=== PATIENT | female | born 1965 | race Caucasian/White ===

== ENCOUNTER 2020-03-05 11:52 | Emergency (ER) | payer MEDICARE, MEDICAID, SELFPAY ==
[2020-03-05] VITALS (7 sets, daily range): BP systolic 139–187; BP diastolic 69–91; PULSE 59–82; RESP 12–21; TEMP 36.7; O2SAT 98–100
--- NOTE | 2020-03-05 11:58 | ED.AMS ---
HPI - Altered Mental Status General Chief Complaint: Altered Mental Status Stated Complaint: Thinks Stroke Time Seen by Provider: 03/05/20 11:54 Source: patient and family Mode of arrival: Ambulatory Limitations: no limitations History of Present Illness HPI narrative: Daily smoker states she was in which she describes as her normal state of health until she went to sleep at 5:00 a.m. this morning. She states that she was hanging out with some friends and would not normally stay up that late. She presented here at about noon with friends stating that she was difficult to arouse. The patient herself denies any specific symptoms, she just states that she feels sleepy. She denies any trauma. She denies any headache or blurred vision. She denies any trouble swallowing or breathing. She denies chest pain or shortness of breath. She denies any numbness, tingling or weakness of her extremities. She denies any history of the same. She denies any use of alcohol or street drugs. MD complaint: altered mental status Onset (ago): hour(s) Severity: moderate Consistency of symptoms: unknown Associated symptoms: denies other symptoms Related Data Home Medications Medication Instructions Recorded Confirmed RANITIDINE HCL (Ranitidine HCl) 150 mg PO BID #0 02/20/11 Previous Rx's Medication Instructions Recorded KETOCONAZOLE 2% (#NIZORAL OFF 2 % TP BID #1 tube 02/20/11 MARKET) TRIAMCINOLONE ACETONIDE (#KENALOG) 0.1 % TP BID #1 tube 02/20/11 triamcinolone acetonide 0.5 gm TP BID #1 t 04/04/11 zolpidem 10 mg PO HS PRN #30 05/30/11 sulfamethoxazole-trimethoprim 1 tab PO BID 10 Days #20 tab 03/05/20 [Bactrim DS] Allergies Allergy/AdvReac Type Severity Reaction Status Date / Time No Known Drug Allergies Allergy Verified 03/05/20 15:12 Review of Systems Constitutional Constitutional: Denies chills, Denies fatigue, Denies fever(s), Denies frequent falls, Denies lethargy and Reports weakness Eyes Eyes: Denies change in vision, Denies eye discharge, Denies irritation and Denies loss of vision ENT Ears, Nose, Mouth, and Throat: Denies change in voice, Denies dizziness, Denies neck pain, Denies sore throat and Denies throat swelling Cardiovascular Cardiovascular: Denies chest pain, Denies irregular heart rhythm, Denies lightheadedness, Denies palpitations, Denies dyspnea, Denies dyspnea on exertion and Denies orthopnea Respiratory Respiratory: Denies cough, Denies dyspnea, Denies dyspnea on exertion and Denies wheezing Gastrointestinal Gastrointestinal: Denies abdominal pain, Denies change in bowel habits, Denies diarrhea, Denies nausea and Denies vomiting Musculoskeletal Musculoskeletal: Denies neck pain and Denies numbness Integumentary/Breasts Skin/Breast: Denies pruritus, Denies erythema, Denies rash and Denies wounds Neurologic Neurologic: Denies behavioral changes, Reports confusion, Denies dizziness, Denies frequent falls, Denies loss of vision, Denies numbness and Reports weakness Comments: difficult to arouse per friends Psychiatric Psychiatric: Denies anxiety, Denies behavioral changes, Reports confusion, Denies depression, Denies homicidal ideation and Denies suicidal ideation Endocrine Endocrine: Denies fatigue, Denies flushing and Denies palpitations Hematologic/Lymphatic Hematologic/Lymphatic: Denies easy bruising Allergic/Immunologic Allergic/Immunologic: Denies urticaria, Denies throat swelling and Denies wheezing Patient History Social History Smoking Status: Current every day smoker Smoking Status: Current every day smoker alcohol intake frequency: 0-2 drinks per day Substance Use Type: does not use Exam Narrative Exam Narrative: GENERAL: [54] year old patient appears stated age. Ambulatory in the department, no obvious lateralizing symptoms. She makes poor eye contact and seems a bit sleepy but wakes up and answers questions accurate HEAD: Atraumatic. Normocephalic. EYES: Pupils equal round and reactive. Extraocular motions intact. No scleral icterus. No injection or drainage. ENT: Nose without bleeding, purulent drainage. Throat without erythema, tonsillar hypertrophy or exudate. Airway patent. NECK: Trachea midline. Non tender CARDIOVASCULAR: Regular rate and rhythm without murmurs, gallops, or rubs. RESPIRATORY: Clear to auscultation. Breath sounds equal bilaterally. No wheezes, rales, or rhonchi. GASTROINTESTINAL: Abdomen soft, non-tender, nondistended. EXTREMITIES: No edema or joint tenderness. BACK: Nontender without deformity or crepitance. No flank tenderness. NEURO: AOx3. SKIN: No rash or erythema of visible areas Initial Vital Signs Initial Vital Signs: Vital Signs Temperature 98.1 F 03/05/20 11:55 Pulse Rate 78 03/05/20 11:55 Respiratory Rate 20 03/05/20 11:55 Blood Pressure 187/70 H 03/05/20 11:55 Pulse Oximetry 99 03/05/20 11:55 Scores NIH Stroke Scale Level of Conciousness: Alert, keenly responsive Ask month/age: Answers both questions correctly. Open/close eyes, close hand: Performs both tasks correctly Best gaze horizontal: Normal Visual miramontes: No visual loss Facial palsy: Normal symetrical movement Left arm drift: No drift for full 10 sec Right arm drift: No drift for full 10 sec Left leg drift: No drift for full 5 sec Right leg drift: No drift for full 5 sec Limb ataxia: Absent Sensory on face/arms/legs: Normal, no sensory loss Best language: No aphasia, normal Dysarthria: Normal Extinction or inattention: No abnormality Total NIH Stroke scale score: 0 Course Course Course Narrative: Patient feeling much better after fluids and rest. She has no focal neurologic findings. She is alert and oriented. She is ambulating through the department. Orders Ordered: Discontinued Medications Sodium Chloride (Normal Saline 0.9%) 1,000 mls @ 125 mls/hr IV CONT PRANAY Last Infusion: 03/05/20 15:00 Dose: 0 mls/hr Documented by: Admin: 03/05/20 12:35 Dose: 125 mls/hr Documented by: RADHA Vital Signs Vital signs: Vital Signs - 8 hr 03/05/20 11:55 03/05/20 12:30 03/05/20 12:59 Temperature 98.1 F Pulse Rate 78 82 81 Respiratory Rate 20 17 13 Blood Pressure 187/70 H 142/90 H 152/90 H Pulse Oximetry 99 98 100 03/05/20 13:30 03/05/20 13:53 03/05/20 14:00 Temperature Pulse Rate 74 74 79 Respiratory Rate 14 12 21 Blood Pressure 139/69 171/91 H 166/74 H Pulse Oximetry 99 99 100 03/05/20 14:30 Temperature Pulse Rate 59 L Respiratory Rate Blood Pressure Pulse Oximetry 99 MDM - Altered Mental Status Lab Data Result diagrams: 03/05/20 12:25 03/05/20 12:25 Labs: Lab Results 03/05/20 03/05/20 03/05/20 Range/Units 12:25 12:25 12:25 WBC 7.5 (4.5-11.0) X10^3/uL RBC 4.52 (4.0-5.2) X10^6/uL Hgb 13.9 (12.0-16.0) g/dL Hct 40.3 (36-46) % MCV 89.1 (80-100) fL MCH 30.7 (26-34) PG MCHC 34.5 (30-36) % RDW 12.5 (11.6-14.8) % Plt Count 303 (150-400) X10^3/uL Neut % (Auto) 59.3 (50-75) % Lymph % (Auto) 30.9 (25-40) % [place] % (Auto) 8.5 (3-14) % Eos % (Auto) 0.6 L (2-4) % Baso % (Auto) 0.7 (0-2) % Neut # (Auto) 4400 (6692-2778) /uL Lymph # (Auto) 2300 (7643-8680) /uL [place] # (Auto) 600 (0-900) /uL Eos # (Auto) 0 (0-450) /uL Baso # (Auto) 0 (0-100) /uL Sodium (137-145) mmol/L Potassium (3.4-5.1) mmol/L Chloride (98-107) mmol/L Carbon Dioxide (22-32) mmol/L BUN (7-17) mg/dL Creatinine (0.52-1.04) mg/dL Estimated GFR (>60) mL/min BUN/Creatinine Ratio (6-22) Glucose (70-100) mg/dL Calcium (8.4-10.2) mg/dL Magnesium (1.6-2.3) mg/dL Total Bilirubin (0.2-1.3) mg/dL AST (14-36) IU/L ALT (<35) IU/L Alkaline Phosphatase (38-126) U/L Ammonia 23 (9-30) umol/L Total Creatine Kinase (30-135) U/L CK-MB (CK-2) CK-MB (CK-2) Rel Index Troponin I (0.01-0.034) ng/mL NT-Pro-B Natriuret Pep (<125) pg/mL Total Protein (6.3-8.2) g/dL Albumin (3.5-5.0) g/dL Globulin (1.7-4.1) g/dL Albumin/Globulin Ratio (1.0-2.8) Urine RBC (0-5/HPF) Urine WBC (0-5/HPF) Urine Bacteria (None) Ur Culture Indicated? U Opiates 300ng/mL cut (Negative) Ur Oxycodone Screen (Negative) Urine Methadone Screen (Negative) Ur Barbiturates Screen (Negative) U Tricyclic Antidepress (Negative) Ur Phencyclidine Scrn (Negative) Ur Amphetamines Screen (Negative) U Methamphetamines Scrn (Negative) Ur MDMA Scrn (Ecstasy) (Negative) U Benzodiazepines Scrn (Negative) Urine Cocaine Screen (Negative) U Marijuana (THC) Screen (Negative) Ethyl Alcohol < 10 ( - 10) mg/dL 03/05/20 03/05/20 03/05/20 Range/Units 12:25 14:11 14:27 WBC (4.5-11.0) X10^3/uL RBC (4.0-5.2) X10^6/uL Hgb (12.0-16.0) g/dL Hct (36-46) % MCV (80-100) fL MCH (26-34) PG MCHC (30-36) % RDW (11.6-14.8) % Plt Count (150-400) X10^3/uL Neut % (Auto) (50-75) % Lymph % (Auto) (25-40) % [place] % (Auto) (3-14) % Eos % (Auto) (2-4) % Baso % (Auto) (0-2) % Neut # (Auto) (6227-5690) /uL Lymph # (Auto) (0409-4196) /uL [place] # (Auto) (0-900) /uL Eos # (Auto) (0-450) /uL Baso # (Auto) (0-100) /uL Sodium 139 (137-145) mmol/L Potassium 3.7 (3.4-5.1) mmol/L Chloride 104 (98-107) mmol/L Carbon Dioxide 31 (22-32) mmol/L BUN 13 (7-17) mg/dL Creatinine 0.61 (0.52-1.04) mg/dL Estimated GFR > 60.0 (>60) mL/min BUN/Creatinine Ratio 21.3 (6-22) Glucose 114 H (70-100) mg/dL Calcium 9.8 (8.4-10.2) mg/dL Magnesium 2.0 (1.6-2.3) mg/dL Total Bilirubin 0.5 (0.2-1.3) mg/dL AST 30 (14-36) IU/L ALT 24 (<35) IU/L Alkaline Phosphatase 111 (38-126) U/L Ammonia (9-30) umol/L Total Creatine Kinase 87 (30-135) U/L CK-MB (CK-2) TNP CK-MB (CK-2) Rel Index TNP Troponin I < 0.012 (0.01-0.034) ng/mL NT-Pro-B Natriuret Pep 121 (<125) pg/mL Total Protein 7.3 (6.3-8.2) g/dL Albumin 4.4 (3.5-5.0) g/dL Globulin 2.9 (1.7-4.1) g/dL Albumin/Globulin Ratio 1.5 (1.0-2.8) Urine RBC 0-1/hpf (0-5/HPF) Urine WBC 10-30/hpf H (0-5/HPF) Urine Bacteria Many (>30) H (None) Ur Culture Indicated? Specimen cultured U Opiates 300ng/mL cut Negative (Negative) Ur Oxycodone Screen Negative (Negative) Urine Methadone Screen Negative (Negative) Ur Barbiturates Screen Negative (Negative) U Tricyclic Antidepress Negative (Negative) Ur Phencyclidine Scrn Negative (Negative) Ur Amphetamines Screen Positive H (Negative) U Methamphetamines Scrn Positive H (Negative) Ur MDMA Scrn (Ecstasy) Negative (Negative) U Benzodiazepines Scrn Negative (Negative) Urine Cocaine Screen Negative (Negative) U Marijuana (THC) Screen Negative (Negative) Ethyl Alcohol ( - 10) mg/dL Point of Care Testing Test Results Negative Urine Dip Bedside Urine Glucose Negative Bedside Urine Bilirubin - Negative Bedside Urine Ketone - Negative Urine Specific [place] 1.015 Bedside Urine Occult Blood - Negative Bedside Urine pH 6.5 Bedside Urine Protein - Negative Bedside Urine Urobilinogen - Negative Bedside Urine Nitrite - Negative Bedside Urine Leukocytes + [address] scan - head: Radiologist's Impression: [address] [id number] Scan ReportSigned Patient: Ivania Vergara JMR#: [id number]: 1965Acct:[id number]/Sex: 54 / FDate of Service: 03/05/20Loc: EDAccession Number: [id number] Procedure: CT head/brain wo con Ordering Provider: Noé Coelho D.O. PROCEDURE: CT HEAD/BRAIN WO CON INDICATIONS: altered TECHNIQUE: Noncontrast 4.5 mm thick angled axial sections acquired from the foramen magnum to the vertex, with coronal and sagittal reformats. For radiation dose reduction, the following was used: automated exposure control, adjustment of mA and/or kV according to patient size. COMPARISON: [facility], RG, CT HEAD W/O CONTRAST, 11/13/2005, 9:39. [facility], MR, BRAIN WITH AND WITHOUT CONTRAS, 06/04/2007, 7:37. FINDINGS: Image quality: This examination is limited by involuntary motion artifact. CSF spaces: Basal cisterns are patent. No extra-axial fluid collections. Ventricles are normal in size and shape. Brain: No midline shift. No intracranial masses or hemorrhage. Matos-white matter interface is normal. There is a remote right posterior inferior cerebellar infarction seen. Skull and face: Likely remote trauma can be seen involving the right occipital bone. Calvarium and visualized facial bones are otherwise intact, without suspicious lesions. Sinuses: Visualized sinuses and mastoids are clear. IMPRESSION: Limited study demonstrating no definite, acute intracranial abnormality. 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 Likely remote trauma of the right occipital bone. Dictated by: Jaciel Rouse M.D. on 03/05/2020 at 12:12 Approved by: Jaciel Rouse M.D. on 03/05/2020 at 12:[address] [id number] Scan ReportSigned Patient: Ivania Vergara JMR#: [id number]: 1965Acct:[id number]/Sex: 54 / FDate of Service: 03/05/20Loc: EDAccession Number: [id number] Procedure: CT angio head and neck Ordering Provider: Noé Coelho D.O. PROCEDURE: CT ANGIO HEAD AND NECK INDICATIONS: altered, question stroke on CT head TECHNIQUE: Pre-contrast 4.5 mm thick sections acquired from the foramen magnum to the vertex. After the administration of intravenous contrast, 1 mm thick sections acquired from the aortic arch through the [place] of [place]. Post-contrast 4.5 mm thick sections then re-acquired from the foramen magnum to the vertex. 3-dimensional zjswlrb-mcnkbkxgj-bdoinwmbmv (MIP) and/or volume rendering reformats were acquired of the central intracranial vasculature and neck separately. COMPARISON: [facility], RG, CT HEAD W/O CONTRAST, 11/13/2005, 9:39. [facility], MR, BRAIN WITH AND WITHOUT CONTRAS, 06/04/2007, 7:37. [facility], CT, CT HEAD/BRAIN WO CON, 03/05/2020, 12:43. FINDINGS: Image quality: Excellent. BRAIN: CSF spaces: Ventricles are normal in size and shape. Probably arachnoid cyst versus old cerebellar infarct the right posterior fossa, unchanged. Basal cisterns are patent. No extra-axial fluid collections. Brain: No midline shift. No intracranial bleeds or masses. Matos-white matter interface appears intact. Skull and face: Calvarium and facial bones appear intact, without suspicious lesions. Orbits appear normal. Sinuses: There is mucous retention material in the right maxillary sinus. The mastoids are clear. HEAD CT ANGIOGRAPHY: Anterior circulation: Intracranial internal carotid arteries are normal in size and flow. The flow within the paired anterior cerebral arteries is normal and symmetric. The flow within the middle cerebral arteries is normal and symmetric. The anterior communicating artery is seen. No aneurysms are seen. Posterior circulation: Visualized portions of the vertebral arteries demonstrate normal caliber, and join to form a normal appearing basilar artery. Flow within the posterior cerebral arteries is normal and symmetric. No aneurysms are seen. NECK CT ANGIOGRAPHY: Carotid system: The great vessels demonstrate a conventional anatomy as they arise from the aortic arch. The origins of the common carotid arteries appear patent. The common carotid arteries demonstrate normal caliber and courses. The bifurcation regions are both widely patent. There is short segment critical stenosis or occlusion of the right internal carotid artery at the skull base. The cavernous segment of the right internal carotid artery reconstitutes from collateral although enhances less than the contralateral left common internal carotid artery. The left internal carotid artery demonstrates normal caliber and course. Posterior circulation: The origins of the vertebral arteries both appear widely patent. The more superior extracranial portions of both vertebral arteries also demonstrate normal courses and calibers. They join to form a normal appearing basilar artery. Soft tissues: Visualized neck soft tissues demonstrate no suspicious abnormalities. There is a 1.2 cm right thyroid cyst. Bones: No suspicious bony lesions. Visualized cervical spine appears normally aligned. IMPRESSION: 1. No acute intracranial abnormalities. 2. Right maxillary sinusitis. 3. No high-grade stenosis or occlusion in anterior circulations. 3. No high-grade stenosis or occlusion in posterior circulations. 4. 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 5. No high-grade stenosis or occlusion in cervical vertebral arteries bilaterally. The result was discussed with Dr. Coelho. Any quantitative measurements of stenosis were performed using NASCET criteria. Dictated by: rByn Lutz M.D. on 03/05/2020 at 14:35 Approved by: Bryn Lutz M.D. on 03/05/2020 at 14:55 CTA Head/Neck: Radiologist's Impression: Chart Viewer Diagnostics DATE TYPE STATUS REF RANGE/AUTHOR Hx 03/05/20 13:25 Saad Lutz 03/05/20 12:03 Jaciel Rouse Carla J 54, F0 1965 DEP ER, Main ED Altered Mental Status Search Chart No Data to Display NonFormulary Not Included in Conflicts ONSET 03/05/20 14:30 Ivania Vergara 54 F [address] [id number] Scan ReportSigned Patient: JaiIvania JIMENEZ#: [id number]: 1965Acct:[id number]/Sex: 54 / FDate of Service: 03/05/20Loc: EDAccession Number: [id number] Procedure: CT angio head and neck Ordering Provider: Noé Coelho D.O. PROCEDURE: CT ANGIO HEAD AND NECK INDICATIONS: altered, question stroke on CT head TECHNIQUE: Pre-contrast 4.5 mm thick sections acquired from the foramen magnum to the vertex. After the administration of intravenous contrast, 1 mm thick sections acquired from the aortic arch through the [place] of [place]. Post-contrast 4.5 mm thick sections then re-acquired from the foramen magnum to the vertex. 3-dimensional jiynlta-xmmnsfcsw-pqojoktxxy (MIP) and/or volume rendering reformats were acquired of the central intracranial vasculature and neck separately. COMPARISON: [facility], RG, CT HEAD W/O CONTRAST, 11/13/2005, 9:39. [facility], MR, BRAIN WITH AND WITHOUT CONTRAS, 06/04/2007, 7:37. [facility], CT, CT HEAD/BRAIN WO CON, 03/05/2020, 12:43. FINDINGS: Image quality: Excellent. BRAIN: CSF spaces: Ventricles are normal in size and shape. Probably arachnoid cyst versus old cerebellar infarct the right posterior fossa, unchanged. Basal cisterns are patent. No extra-axial fluid collections. Brain: No midline shift. No intracranial bleeds or masses. Matos-white matter interface appears intact. Skull and face: Calvarium and facial bones appear intact, without suspicious lesions. Orbits appear normal. Sinuses: There is mucous retention material in the right maxillary sinus. The mastoids are clear. HEAD CT ANGIOGRAPHY: Anterior circulation: Intracranial internal carotid arteries are normal in size and flow. The flow within the paired anterior cerebral arteries is normal and symmetric. The flow within the middle cerebral arteries is normal and symmetric. The anterior communicating artery is seen. No aneurysms are seen. Posterior circulation: Visualized portions of the vertebral arteries demonstrate normal caliber, and join to form a normal appearing basilar artery. Flow within the posterior cerebral arteries is normal and symmetric. No aneurysms are seen. NECK CT ANGIOGRAPHY: Carotid system: The great vessels demonstrate a conventional anatomy as they arise from the aortic arch. The origins of the common carotid arteries appear patent. The common carotid arteries demonstrate normal caliber and courses. The bifurcation regions are both widely patent. There is short segment critical stenosis or occlusion of the right internal carotid artery at the skull base. The cavernous segment of the right internal carotid artery reconstitutes from collateral although enhances less than the contralateral left common internal carotid artery. The left internal carotid artery demonstrates normal caliber and course. Posterior circulation: The origins of the vertebral arteries both appear widely patent. The more superior extracranial portions of both vertebral arteries also demonstrate normal courses and calibers. They join to form a normal appearing basilar artery. Soft tissues: Visualized neck soft tissues demonstrate no suspicious abnormalities. There is a 1.2 cm right thyroid cyst. Bones: No suspicious bony lesions. Visualized cervical spine appears normally aligned. IMPRESSION: 1. No acute intracranial abnormalities. 2. Right maxillary sinusitis. 3. No high-grade stenosis or occlusion in anterior circulations. 3. No high-grade stenosis or occlusion in posterior circulations. 4. 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 5. No high-grade stenosis or occlusion in cervical vertebral arteries bilaterally. The result was discussed with Dr. Coelho. Any quantitative measurements of stenosis were performed using NASCET criteria. Dictated by: Bryn Lutz M.D. on 03/05/2020 at 14:35 Approved by: Bryn Lutz M.D. on 03/05/2020 at 14:55 MDM Narrative Medical decision making narrative: 54-year-old presents with sleepiness, difficult arousal, and mild confusion. She had no complaints or physical exam findings that were focal and though stroke was considered, from the onset it presented as more of a global encephalopathy such as toxic, metabolic. Over the course of the shift she got some rest and fluids and gradually felt much better. There is renal head CT showed a questionable spot which on CT a was more likely an arachnoid cyst. When her significant other can he mention that they had partied yesterday and stayed up much later than normal. This fits her presentation. Return precautions given questions answered to her apparent satisfaction Discharge Plan Departure Patient Disposition: Home Clinical Impression: Altered mental status Qualifiers: Altered mental status type: transient alteration of awareness Qualified Code(s): R40.4 - Transient alteration of awareness Instructions: DI for Altered Mental Status Activity Restrictions/Additional Instructions: *You have been diagnosed with [altered mental status, likely due to fatigue. Also, evidence of urinary tract infection. Blood work is very reassuring. CT scans but demonstrate no evidence of significant findings. *What to do: *Take medications as directed *Follow up with your primary care provider in 2-3 days, call for an appointment. Let them know you were seen in the Emergency Department and that we ask that you be seen in follow up *Return to ER if you should have any new, worsening or concerning symptoms, such as [ ] Prescriptions: New sulfamethoxazole-trimethoprim [Bactrim DS] 800-160 mg tablet 1 tab PO BID 10 Days Qty: 20 RF: 0 No Action RANITIDINE HCL (Ranitidine HCl) 150 mg PO BID Qty: 0 RF: 0 KETOCONAZOLE 2% (#NIZORAL OFF MARKET) 2 % TP BID Qty: 1 RF: 3 TRIAMCINOLONE ACETONIDE (#KENALOG) 0.1 % TP BID Qty: 1 RF: 3 triamcinolone acetonide 0.5 % ointment 0.5 gm TP BID Qty: 1 RF: 1 zolpidem 10 MG tablet 10 mg PO HS PRNQty: 30 RF: 0
--- NOTE | 2020-03-05 12:03 | DI.CT.S_ITS ---
PROCEDURE: CT HEAD/BRAIN WO CON INDICATIONS: altered TECHNIQUE: Noncontrast 4.5 mm thick angled axial sections acquired from the foramen magnum to the vertex, with coronal and sagittal reformats. For radiation dose reduction, the following was used: automated exposure control, adjustment of mA and/or kV according to patient size. COMPARISON: [facility], RG, CT HEAD W/O CONTRAST, 11/13/2005, 9:39. [facility], MR, BRAIN WITH AND WITHOUT CONTRAS, 06/04/2007, 7:37. FINDINGS: Image quality: This examination is limited by involuntary motion artifact. CSF spaces: Basal cisterns are patent. No extra-axial fluid collections. Ventricles are normal in size and shape. Brain: No midline shift. No intracranial masses or hemorrhage. Matos-white matter interface is normal. There is a remote right posterior inferior cerebellar infarction seen. Skull and face: Likely remote trauma can be seen involving the right occipital bone. Calvarium and visualized facial bones are otherwise intact, without suspicious lesions. Sinuses: Visualized sinuses and mastoids are clear. IMPRESSION: Limited study demonstrating no definite, acute intracranial abnormality. 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 Likely remote trauma of the right occipital bone. Dictated by: Jaciel Rouse M.D. on 03/05/2020 at 12:12 Approved by: Jaciel Rouse M.D. on 03/05/2020 at 12:15
--- NOTE | 2020-03-05 12:32 | CM.MNRNOTE ---
Pt taken to restroom and unable to provide urine at this time. Pt is a 1-2 person assist from wheelchair to toilet
[2020-03-05] MEDS: SODIUM CHLORIDE 0.9% 1,000 ML 125 ML IV (12:35)
[2020-03-05 12:36] LABS: Add Manual Diff / Slide Review NO; Basophils Absolute Auto 0 /uL (0-100); Basophils Percent Auto 0.7 % (0-2); Eosinophils Absolute Auto 0 /uL (0-450); Eosinophils Percent Auto 0.6 % (2-4); Hematocrit 40.3 % (36-46); Hemoglobin 13.9 g/dL (12.0-16.0); Lymphocytes Absolute Auto 2300 /uL (1100-4500); Lymphocytes Percent Auto 30.9 % (25-40); Mean Corpuscular HGB Conc 34.5 % (30-36); Mean Corpuscular Hemoglobin 30.7 PG (26-34); Mean Corpuscular Volume 89.1 fL (80-100); Monocytes Absolute Auto 600 /uL (0-900); Monocytes Percent Auto 8.5 % (3-14); Neutrophils Absolute Auto 4400 /uL (1500-7000); Neutrophils Percent Auto 59.3 % (50-75); Platelet Count 303 X10^3/uL (150-400); Red Blood Cell Count 4.52 X10^6/uL (4.0-5.2); Red Cell Distribution Width 12.5 % (11.6-14.8); White Blood Cell Count 7.5 X10^3/uL (4.5-11.0)
[2020-03-05 12:47] LABS: Alanine Aminotransferase 24 IU/L (<35); Albumin 4.4 g/dL (3.5-5.0); Albumin Globulin Ratio 1.5 (1.0-2.8); Alkaline Phosphatase 111 U/L (38-126); Ammonia (NH3) 23 umol/L (9-30); Aspartate Aminotransferase 30 IU/L (14-36); BUN Creatinine Ratio 21.3 (6-22); Bilirubin Total 0.5 mg/dL (0.2-1.3); Blood Urea Nitrogen 13 mg/dL (7-17); Calcium 9.8 mg/dL (8.4-10.2); Carbon Dioxide 31 mmol/L (22-32); Chloride 104 mmol/L (98-107); Creatine Kinase 87 U/L (30-135); Estimated Glomerular Filt Rate > 60.0 mL/min (>60); Ethanol (ETOH) < 10 mg/dL; Globulin 2.9 g/dL (1.7-4.1); Glucose 114 mg/dL (70-100); HEMOLYSIS 16 (0-50); Potassium 3.7 mmol/L (3.4-5.1); Sodium 139 mmol/L (137-145); Total Protein 7.3 g/dL (6.3-8.2)
[2020-03-05 12:58] LABS: NT-proBNP (BNP-Adult 18+) 121 pg/mL (<125); Troponin I < 0.012 ng/mL (0.01-0.034)
--- NOTE | 2020-03-05 13:25 | DI.CT.S_ITS ---
PROCEDURE: CT ANGIO HEAD AND NECK INDICATIONS: altered, question stroke on CT head TECHNIQUE: Pre-contrast 4.5 mm thick sections acquired from the foramen magnum to the vertex. After the administration of intravenous contrast, 1 mm thick sections acquired from the aortic arch through the [place] of [place]. Post-contrast 4.5 mm thick sections then re-acquired from the foramen magnum to the vertex. 3-dimensional hzahiak-xhjtypjmb-kbbbkyezrt (MIP) and/or volume rendering reformats were acquired of the central intracranial vasculature and neck separately. COMPARISON: [facility], RG, CT HEAD W/O CONTRAST, 11/13/2005, 9:39. [facility], MR, BRAIN WITH AND WITHOUT CONTRAS, 06/04/2007, 7:37. [facility], CT, CT HEAD/BRAIN WO CON, 03/05/2020, 12:43. FINDINGS: Image quality: Excellent. BRAIN: CSF spaces: Ventricles are normal in size and shape. Probably arachnoid cyst versus old cerebellar infarct the right posterior fossa, unchanged. Basal cisterns are patent. No extra-axial fluid collections. Brain: No midline shift. No intracranial bleeds or masses. Matos-white matter interface appears intact. Skull and face: Calvarium and facial bones appear intact, without suspicious lesions. Orbits appear normal. Sinuses: There is mucous retention material in the right maxillary sinus. The mastoids are clear. HEAD CT ANGIOGRAPHY: Anterior circulation: Intracranial internal carotid arteries are normal in size and flow. The flow within the paired anterior cerebral arteries is normal and symmetric. The flow within the middle cerebral arteries is normal and symmetric. The anterior communicating artery is seen. No aneurysms are seen. Posterior circulation: Visualized portions of the vertebral arteries demonstrate normal caliber, and join to form a normal appearing basilar artery. Flow within the posterior cerebral arteries is normal and symmetric. No aneurysms are seen. NECK CT ANGIOGRAPHY: Carotid system: The great vessels demonstrate a conventional anatomy as they arise from the aortic arch. The origins of the common carotid arteries appear patent. The common carotid arteries demonstrate normal caliber and courses. The bifurcation regions are both widely patent. There is short segment critical stenosis or occlusion of the right internal carotid artery at the skull base. The cavernous segment of the right internal carotid artery reconstitutes from collateral although enhances less than the contralateral left common internal carotid artery. The left internal carotid artery demonstrates normal caliber and course. Posterior circulation: The origins of the vertebral arteries both appear widely patent. The more superior extracranial portions of both vertebral arteries also demonstrate normal courses and calibers. They join to form a normal appearing basilar artery. Soft tissues: Visualized neck soft tissues demonstrate no suspicious abnormalities. There is a 1.2 cm right thyroid cyst. Bones: No suspicious bony lesions. Visualized cervical spine appears normally aligned. IMPRESSION: 1. No acute intracranial abnormalities. 2. Right maxillary sinusitis. 3. No high-grade stenosis or occlusion in anterior circulations. 3. No high-grade stenosis or occlusion in posterior circulations. 4. 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 5. No high-grade stenosis or occlusion in cervical vertebral arteries bilaterally. The result was discussed with Dr. Coelho. Any quantitative measurements of stenosis were performed using NASCET criteria. Dictated by: Bryn Lutz M.D. on 03/05/2020 at 14:35 Approved by: Bryn Lutz M.D. on 03/05/2020 at 14:55
--- NOTE | 2020-03-05 14:14 | PC.NURSE ---
Patient ambulated independently to restroom. States no longer feels weakness in legs/muscles. Patient appears steady on feet as ambulating. States feel like normal.
[2020-03-05 14:33] LABS: UR Morphine/Opiate cutoff 300 Negative (Negative); Ur Creatinine Normal (Normal); Ur Specific Gravity Normal (Normal); Urine Amphetamines Positive (Negative); Urine Barbiturates Negative (Negative); Urine Benzodiazepines Negative (Negative); Urine Cocaine Negative (Negative); Urine MDMA Negative (Negative); Urine Methadone Negative (Negative); Urine Methamphetamines Positive (Negative); Urine Oxycodone Negative (Negative); Urine Phencyclidine Negative (Negative); Urine Tetrahydrocannabinol Negative (Negative); Urine Tricyclic Antidepressant Negative (Negative); Urine pH Normal (Normal)
[2020-03-05 14:38] LABS: Bacteria Urine Many (>30); Culture Indicated Urine Specimen Cultured; RBC Urine 0-1/HPF (0-5/HPF); WBC Urine 10-30/HPF (0-5/HPF)
== END 2020-03-05 15:14 | disposition home or self-care (01) ==
PROVIDERS: Emergency Provider Emergency Medicine
DX: R40.4 Transient alteration of awareness (principal)
CPT/HCPCS: 36415; 70450; 70496; 70498; 80053; 80305; 80320; 81003; 81015; 81025; 82140; 82550; 83735; 83880; 84484; 85025; 87077; 87086; 87186; 96360; 96361; 99283; 99284; Q9967

== ENCOUNTER 2020-03-09 02:22 | Emergency (ER) | payer MEDICARE, MEDICAID, SELFPAY ==
[2020-03-09] VITALS (7 sets, daily range): BP systolic 144–164; BP diastolic 83–84; PULSE 61–81; RESP 13–21; TEMP 36.7–37; O2SAT 96–100; BMI 24.5
--- NOTE | 2020-03-09 02:28 | DI.CT.S_ITS ---
PROCEDURE: CT HEAD/BRAIN WO CON INDICATIONS: Left sided weakness TECHNIQUE: Noncontrast 4.5 mm thick angled axial sections acquired from the foramen magnum to the vertex, with coronal and sagittal reformats. For radiation dose reduction, the following was used: automated exposure control, adjustment of mA and/or kV according to patient size. COMPARISON: [facility], CT, CT HEAD/BRAIN WO CON, 03/05/2020, 12:43. FINDINGS: Image quality: Excellent. CSF spaces: Basal cisterns are patent. No extra-axial fluid collections. Ventricles are normal in size and shape. Brain: There is an old right cerebellar infarct, unchanged. No midline shift. No intracranial masses or hemorrhage. Matos-white matter interface is normal. Skull and face: Calvarium and visualized facial bones are intact, without suspicious lesions. Sinuses: There is a mucous retention cyst in the right maxillary sinus. The mastoids are clear. IMPRESSION: 1. No acute intracranial abnormalities. 2. Old right cerebellar infarct. 3. A mucous retention cyst in the right maxillary sinus. No significant discrepancy with the uniform room attendant radiology preliminary report. Dictated by: Bryn Lutz M.D. on 03/09/2020 at 7:58 Approved by: Bryn Lutz M.D. on 03/09/2020 at 8:02
--- NOTE | 2020-03-09 02:39 | ED_ITS ---
HPI - General Adult General Chief complaint: Extremity Injury, Upper Stated complaint: thinks she has had a stroke Time Seen by Provider: 03/09/20 02:23 Source: patient Mode of arrival: Ambulatory Limitations: no limitations History of Present Illness HPI narrative: 54-year-old female here for evaluation of left shoulder after a fall this evening and also tingling down her left arm and pain behind her left shoulder. She is concerned that the tingling down her left arm and the pain in her left shoulder that was present prior to the fall was potentially a stroke. She states that this morning she was having sexual intercourse with her boyfriend when she fell landing on her left shoulder. She was seen here in the emergency department a couple days ago for which he states was same symptoms and was discharged home. She thinks she is having a stroke Related Data Home Medications Medication Instructions Recorded Confirmed RANITIDINE HCL (Ranitidine HCl) 150 mg PO BID #0 02/20/11 Previous Rx's Medication Instructions Recorded KETOCONAZOLE 2% (#NIZORAL OFF 2 % TP BID #1 tube 02/20/11 MARKET) TRIAMCINOLONE ACETONIDE (#KENALOG) 0.1 % TP BID #1 tube 02/20/11 triamcinolone acetonide 0.5 gm TP BID #1 t 04/04/11 zolpidem 10 mg PO HS PRN #30 05/30/11 sulfamethoxazole-trimethoprim 1 tab PO BID 10 Days #20 tab 03/05/20 [Bactrim DS] Allergies Allergy/AdvReac Type Severity Reaction Status Date / Time No Known Drug Allergies Allergy Verified 03/05/20 15:12 Review of Systems Constitutional Constitutional: Denies fever(s) and Denies headache(s) ENT Ears, Nose, Mouth, and Throat: Denies headache(s) Cardiovascular Cardiovascular: Denies chest pain and Denies dyspnea Respiratory Respiratory: Denies dyspnea Gastrointestinal Gastrointestinal: Denies abdominal pain, Denies nausea and Denies vomiting Genitourinary Genitourinary: Denies dysuria Genitourinary: Denies dysuria Musculoskeletal Comments: Left shoulder pain Integumentary/Breasts Skin/Breast: Denies lesions and Denies rash Neurologic Neurologic: Denies headache(s) Hematologic/Lymphatic Hematologic/Lymphatic: Denies easy bleeding and Denies easy bruising Allergic/Immunologic Allergic/Immunologic: Denies urticaria Patient History Medical History Altered mental status Social History Smoking Status: Current every day smoker Smoking Status: Current every day smoker alcohol intake frequency: 0-2 drinks per day Substance Use Type: does not use Exam Initial Vital Signs Initial Vital Signs: Vital Signs Temperature 98.0 F 03/09/20 02:30 Pulse Rate 74 03/09/20 02:30 Respiratory Rate 16 03/09/20 02:30 Blood Pressure 164/83 H 03/09/20 02:30 Pulse Oximetry 96 03/09/20 02:30 Const General: cooperative and comfortable Limitations: mental status not altered HENMT Head: normal to inspection and normocephalic Nose: external nose normal Eyes Pupils: PERRL Resp Effort & Inspection: normal respiratory effort Auscultation: clear to auscultation bilaterally Cardio Rate: regular rate Rhythm: regular rhythm GI Inspection: non-distended Palpation: soft Back/Spine/Pelvis Back: No CVA tenderness Thoracic/Lumbar Spine: No thoracic spinal tenderness and No lumbar spinal tenderness Skin Lesions: no lesions Rashes: no rashes Neuro General: patient alert, patient awake and patient oriented x3 Cranial Nerves: CN's II-XI intact bilaterally Cognition: normal cognition Speech: speech normal Gait: normal gait Motor: muscle tone normal throughout Sensory Exam: no sensory deficits noted Extrem Other: Tenderness to palpation over the AC joint left shoulder. Rest of her left upper extremity exam unremarkable. Psych Appearance: grossly normal and well kempt Scores GCS [place] coma scale eye opening: Spontaneous [place] coma scale verbal response: Orientated Jinny coma scale motor response: Obey commands Jinny coma scale total score: 15 NIH Stroke Scale Level of Conciousness: Alert, keenly responsive Ask month/age: Answers both questions correctly. Open/close eyes, close hand: Performs both tasks correctly Best gaze horizontal: Normal Visual miramontes: No visual loss Facial palsy: Normal symetrical movement Left arm drift: No drift for full 10 sec Right arm drift: No drift for full 10 sec Left leg drift: No drift for full 5 sec Right leg drift: No drift for full 5 sec Limb ataxia: Absent Sensory on face/arms/legs: Normal, no sensory loss Best language: No aphasia, normal Dysarthria: Normal Extinction or inattention: No abnormality Total NIH Stroke scale score: 0 Course Orders Ordered: ED Orders 03/09/20 02:28 CT head/brain wo con Stat Lipase Stat EKG-12 Lead Stat 03/09/20 02:50 XR shoulder LT min 2V Stat Vital Signs Vital signs: Vital Signs - 8 hr 03/09/20 02:30 03/09/20 02:48 03/09/20 03:00 Temperature 98.0 F Pulse Rate 74 78 80 Respiratory Rate 16 21 21 Blood Pressure 164/83 H Pulse Oximetry 96 100 99 03/09/20 03:30 03/09/20 04:00 03/09/20 04:08 Temperature Pulse Rate 61 67 81 Respiratory Rate 14 13 17 Blood Pressure 144/84 H Pulse Oximetry 99 100 100 03/09/20 04:13 Temperature 98.6 F Pulse Rate Respiratory Rate Blood Pressure Pulse Oximetry Medical Decision Making Imaging Data Extremity x-ray #1: Radiologist's Impression: No fracture or acute finding CT scan - head: Radiologist's Impression: Stable head CT without acute intracranial abnormality ECG Data Attestation: I personally reviewed and interpreted this ECG as follows: Prior ECG tracings: not available for review Interpretation: Sinus rhythm Ventricular rate is 69 Normal axis Normal QRS Normal QTC No ST T wave changes MDM Narrative Medical decision making narrative: Patient's head CT is unremarkable. Her NIH score 0. She has pinpoint tenderness palpation over the AC joint of her left shoulder. The x-rays unremarkable. She also has tenderness palpation over the trapezius/levator scapulae on the left. This is not new from the fall earlier this evening. I suspect this is also muscle strain. Try to reassure the patient that she was not having a stroke as her symptoms are not consistent with that. We did discuss things that she could try at home for both the findings found on her exam today. Feel we can hold on further workup. She was given return precautions. She expressed understanding and agreement. Discharge Plan Departure Patient Disposition: Home Clinical Impression: Muscle strain of shoulder region Qualifiers: Encounter type: initial encounter Laterality: left Qualified Code(s): S46.912A - Strain of unspecified muscle, fascia and tendon at shoulder and upper arm level, left arm, initial encounter Acromioclavicular joint pain Qualifiers: Laterality: left Qualified Code(s): M25.512 - Pain in left shoulder Instructions: DI for Muscle Strain, How To Perform RICE (Rest, Ice, Compress, Elevate) Activity Restrictions/Additional Instructions: Your exam today is not consistent with stroke. It is most consistent with an injury to your shoulder from the fall that she sustained and also muscle strain to your shoulder. Recommend that you take some anti-inflammatories. Also recommend heat/ice. Massage also helps with this type of injury. Contact her primary provider for follow-up. If you do not have a primary provider you can contact [phone] and talk with our health natural resource technician. Prescriptions: No Action RANITIDINE HCL (Ranitidine HCl) 150 mg PO BID Qty: 0 RF: 0 KETOCONAZOLE 2% (#NIZORAL OFF MARKET) 2 % TP BID Qty: 1 RF: 3 TRIAMCINOLONE ACETONIDE (#KENALOG) 0.1 % TP BID Qty: 1 RF: 3 triamcinolone acetonide 0.5 % ointment 0.5 gm TP BID Qty: 1 RF: 1 zolpidem 10 MG tablet 10 mg PO HS PRNQty: 30 RF: 0 sulfamethoxazole-trimethoprim [Bactrim DS] 800-160 mg tablet 1 tab PO BID 10 Days Qty: 20 RF: 0
--- NOTE | 2020-03-09 02:50 | DI.RAD.S_ITS ---
PROCEDURE: XR SHOULDER LT MIN 2V INDICATIONS: fall with A/C joint pain TECHNIQUE: 3 views of the shoulder were acquired. COMPARISON: None. FINDINGS: Bones: No fractures or dislocations. No suspicious bony lesions. Visualized ribs appear intact. Soft tissues: No suspicious soft tissue calcifications. IMPRESSION: No acute osseous abnormalities. No significant discrepancy with the machinist 2nd shift radiology preliminary report. Dictated by: Bryn Lutz M.D. on 03/09/2020 at 9:12 Approved by: Bryn Lutz M.D. on 03/09/2020 at 9:13
--- NOTE | 2020-03-09 03:08 | PC.NURSE ---
Unsuccessful IV attempt. pt refusing IV at this time. states she also does not want lab to come and try to draw her. Dr Montesinos made aware. no new orders
== END 2020-03-09 04:13 | disposition home or self-care (01) ==
PROVIDERS: Emergency Provider Emergency Medicine
DX: S46.912A Strain of unspecified muscle, fascia and tendon at shoulder and upper arm level, left arm, initial encounter (principal); M25.512 Pain in left shoulder; R20.2 Paresthesia of skin; R07.9 Chest pain, unspecified
CPT/HCPCS: 70450; 73030; 93005; 99284